=== PATIENT | female | born 1930 | race Caucasian/White ===

== ENCOUNTER 2020-02-11 16:51 | Inpatient (IN) | payer MEDICARE ==
[~2020-02-11] VITALS: Ht 154.9 cm; Wt 36.7 kg
[~2020-02-11 16:51] MED LIST: ASPIR 8181 MG PO; ASPIRIN325 PO; B-100 COMPLEX1 EAC1 PO; B-COMPLEX-VITA1 EACH PO; CARDIZEM CD180 MG PO; DILTIAZEM 24HR180 MG PO; DOXYCYCLINE 10100 M1 PO; EVISTA PO; FLOVENT DISKUS50 MCG IH; FOSAMAX 70 MG T70 M1 PO; IRON325; LEVAQUIN 250 M250 MG PO; LO-DOSE ASPIRIN81 M1 PO; LORATIDINE 10 M10 M1 PO; MECLIZINE HCL12.5 MG PO; MULTI VITAMIN1 EACH PO; NAPROSYN500 MG PO; PREDNISONE 10 M10 MG PO; RESTASIS1 EACH OP; ZANTAC 150MG T150 MG PO
[2020-02-11 17:08] VITALS: BP 138/73
[2020-02-11] MEDS ORDERED: ASA81BEC PO (17:14)
[2020-02-11] MEDS ORDERED: SYSTANE 0.3-0.1 EACH (17:14)
[2020-02-11] MEDS ORDERED: TRIAMTERENE/HCT1 CA1 PO (17:14)
[2020-02-11 17:48] LABS: ABSOLUTE LYMPHOCYTES 0.6 thou/uL (0.8-5.3); ABSOLUTE MONOCYTES 0.3 thou/uL (0.0-1.2); ABSOLUTE NEUTROPHILS 4.3 thou/uL (1.6-8.1); BASOPHILS 0.7 %; EOSINOPHILS 0.4 %; HEMATOCRIT 28.9 % (37.0-47.0); HEMOGLOBIN 9.6 gm/dL (12.0-15.0); LYMPHOCYTES 11.8 %; MCH 31.4 pg (26.0-34.0); MCHC 33.1 g/dL (28.0-37.0); MCV 95.1 fL (80.0-100.0); MONOCYTES 5.2 %; MPV 7.4 fl. (7.2-11.1); NUCLEATED RBCS 0 /100WBC; PLATELET COUNT* 250 thou/uL (150-400); POLYS 81.9 %; RBC 3.04 mil/uL (4.20-5.00); RDW-CV 16.1 % (10.5-14.5); WBC 5.2 thou/uL (4.0-11.0)
[2020-02-11 17:55] LABS: CALCIUM 7.7 mg/dL (8.5-10.1); CREATININE 1.1 mg/dL (0.6-1.3); POTASSIUM 3.3 mmol/L (3.5-5.1)
[2020-02-11 18:06] LABS: ALBUMIN 2.4 g/dL (3.4-5.0); TOTAL BILIRUBIN 0.2 mg/dL (<0.1-1.0); TOTAL PROTEIN 5.7 g/dL (6.4-8.2)
[2020-02-11 19:54] LABS: URINE BILIRUBIN NEGATIVE (Negative); URINE BLOOD TRACE (Negative); URINE CLARITY TURBID; URINE COLOR YELLOW; URINE GLUCOSE-RANDOM NEGATIVE (Negative); URINE KETONES NEGATIVE (Negative); URINE LEUKOCYTES-REFLEX 1+ (Negative); URINE PROTEIN TRACE (Negative); URINE UROBILINOGEN 0.2 E.U./dl (0.2-1.0)
[2020-02-11 19:56] LABS: URINE NITRITE-REFLEX POSITIVE (Negative)
[2020-02-11 20:07] LABS: HYALINE CASTS 0-3 Few /LPF (None Seen); MUCUS None Seen strn/LPF (None Seen); SQUAMOUS >10 Many /LPF (0-3)
[2020-02-11 20:08] LABS: BACTERIA-REFLEX >30 Many /HPF (None Seen); URINE RBC 0-2 Rare /HPF (0-2); URINE WBC-REFLEX 6-15 Few /HPF (0-5)
[2020-02-11 20:09] LABS: CRYSTALS None Seen /LPF (None Seen)
[2020-02-11 22:15] VITALS: BP 140/66
[2020-02-11 23:57] VITALS: BP 169/84
[2020-02-12 04:29] VITALS: BP 160/76
--- NOTE | 2020-02-12 04:31 | NUR ---
ASSUMED CARE OF PT 02/11/20 AT APPROX 2220. PT A&OX4, ON ROOM AIR, VSS. SR WITH PAC'S ON MONITOR. WOUND CONSULT ORDERED FOR MULTI WEEPING WOUNDS/BLISTERS ON BLE. IV FLUIDS INFUSING ORDERED. PT HAD NO COMPLAINTS THIS SHIFT. ASSESSMENTS AND HOURLY ROUNDINGS COMPLETED. WILL CONTINUE TO MONITOR.
[2020-02-12 08:00] VITALS: BP 122/62
[2020-02-12 11:30] VITALS: BP 128/67
--- NOTE | 2020-02-12 12:49 | EKG ---
[place] [address] ELECTROCARDIOGRAM REPORT Name: LISA PALMA Room: [address] IN .R.#: [id number] Admission: 02/11/20 Attend Phys: Kelly Anderson Discharge: Date of : [birth year] Date of Service: 02/11/20 1738 Report #: [id number] THIS REPORT FOR: //name// [facility] ED Test Date: 2020-02-11 Test Time: 17:38:23 Pat Name: LISA PALMA Department: Room: [facility] Gender: F Mind Reader: : 1930 Requested By: Maritza Caldwell Order Number: [id number] MD: Duke Reza Measurements Intervals Ullin Rate: 72 P: 79 FL: 113 QRS: 73 QRSD: 71 T: 11 QT: 387 QTc: 424 Interpretive Statements Sinus rhythm Supraventricular bigeminy Borderline short FL interval Nonspecific T abnormalities, lateral leads Compared to ECG 03/18/2017 16:15:16 T-wave abnormality now present Sinus tachycardia no longer present ST (T wave) deviation no longer present Electronically Signed On 02-12-2020 12:48:00 CDT by Duke Reza [email or web address] <ELECTRONICALLY SIGNED> By: Duke Reza MD, [facility] 02/12/20 1248 1738 1738 Duke Reza MD, [facility] /EPI
--- NOTE | 2020-02-12 15:28 | NUR ---
WOUND NURSE: PATIENT SEEN TO ADDRESS BLE WOUNDS AFTER SEROUS STRIKE THROUGH ON BANDAGES THAT WERE CHANGED EARLIER TODAY. RLE: PROXIMAL LATERAL WOUND PRESENTS INTACT BULLA MEASURING 3.0 X 3.5 CM. APPEARS SEROUS FLUID FILLED. SLIGHTLY DISTAL TO THIS WOUND AND SUMA LATERAL MEASURES 1.0 X 1.5 CM X 0.1 CM AND IS SMALL SKIN TEAR WITH LOOSE FLAP OF SKIN AND DRAINING LARGE AMOUNT OF SEROUS DRAINAGE. THERE IS A 6.0 X 4.0 X 0.1 CM RUPTURED BULLA ON THE LEFT LOWER LEG DRAINING LARGE AMOUNTS OF SEROUS FLUID. THERE IS 2 PLUS PITTING EDEMA IN BILATERAL LEGS. THERE IS SIGNIFICANT ECCHYMOSIS ON BOTH LEGS AND FEET WHICH ARE COLD TO TOUCH. CAPILLARY REFILL WAS 5 SECONDS ON THE RIGHT AND 3 SECONDS ON THE LEFT. ABLE TO DOPPLER MONOPHASIC DP PULSES BILATERALY. CLEANSED BLE WITH SOAP AND WATER, RINSED, THEN PATTED DRY. APPLIED LOTION TO INTACT SKIN TOES TO KNEE. APPLIED OPTIFOAM GENTLE AG TO WOUNDS UNDER ABD'S, THEN WRAPPED WITH KERLEX ROLL GAUZE AND SECURED WITH TAPE. HEELS WERE WHITE AND POOR CAP REFILL, SO HEELS OFF MATTRESS USING PILLOWS. PATIENT WITH < ALBUMIN AND PREALBUMIN AND RECEIVING SUPPLEMENTS PER HER NURSE.
[2020-02-12 15:47] VITALS: BP 153/78
--- NOTE | 2020-02-12 16:00 | NUR ---
ATTEMPTED TO CONTACT PT BY PHONE X2, SHE ASKED THAT CM CALL BACK, ATTEMPTED AND PT DIDN'T ANSWER. WILL TRY AGAIN LATER
--- NOTE | 2020-02-12 19:27 | NUR ---
RECEIVED REPORT FROM FLOR RN. ASSUMED CARE OF PT AROUND 0730. PT A&O X4. ASPHALT SURFACE HEATER OPERATOR IN PLACE TRACING SR WITH PAC'S TO SA. AM ASSESSMENT AND VITALS COMPLETED CHARTED. MEDS PER EMAR. POTASSIUM REPLACED. REDRAW ORDERED. PT DENIED PAIN OR DISCOMFORT THIS SHIFT. VASCULAR ASSESSED AND WRAPPED PT'S LEGS THIS AM, AND THEN LATER TODAY PT WAS SEEN BY WOUND CARE NURSE WHO REDRESSED BLE'S DUE TO DRESSING SATURATION. PT UP WITH SBA TO BATHROOM, VOIDING WELL. PT TOLERATING DIET AND DRINKING ENSURE SHAKES. HEELS OFF BED ON PILLOWS. PT CURRENTLY RESTING IN BED. CALL LIGHT IS WITHIN REACH. HOURLY ROUNDING PERFORMED. FALL PRECAUTIONS IN PLACE.
[2020-02-12 20:00] VITALS: BP 118/58
[2020-02-13] VITALS: BP 131/71
[2020-02-13 04:00] VITALS: BP 164/86
[2020-02-13 04:05] LABS: CALCIUM 7.6 mg/dL (8.5-10.1); CREATININE 0.9 mg/dL (0.6-1.3); MAGNESIUM 1.8 mg/dL (1.8-2.4); POTASSIUM 4.5 mmol/L (3.5-5.1)
--- NOTE | 2020-02-13 07:21 | NUR ---
NEW SKIN TEAR ON RIGHT WRIST, PICTURE TAKEN AND DOCUMENTED. SEE MAR. SEE CHARTING. VSS. FALL PRECAUTIONS IN PLACE. HOURLY ROUNDING FOR SAFETY.
[2020-02-13 08:10] VITALS: BP 125/91
[2020-02-13] MEDS ORDERED: B12INJ SUBQ (09:24)
[2020-02-13] MEDS ORDERED: SYNTHROID50 MCG PO (09:24)
[2020-02-13] MEDS ORDERED: THERA M PLUS T1 EAC2 PO (09:24)
[2020-02-13] MEDS ORDERED: CEFUROXIME250 MG PO (09:24)
[2020-02-13 10:34] VITALS: BP 156/72
[2020-02-13 11:24] VITALS: BP 156/72
[2020-02-13 12:18] VITALS: BP 156/72
--- NOTE | 2020-02-13 12:19 | NUR ---
ESTHELA called pt to complete initial assessment and discuss safe dc planning for today. Pt lives at home alone and has support in a close friend whom she still refers to as "like an adopted" dtr. Pt has 2 RWs she says she doesn't use but has if needed. ESTHELA explained doctor's recommendation for HH for wound care and nutritional assistance at home and pt agreeable to this and did not have preference but choice for [facility] and ESTHELA arranged, faxed referral and orders/dc summary to [facility] intake who accepted referral. Pt has a ride home she said she would call when ready to dc.
--- NOTE | 2020-02-13 15:04 | NUR ---
RECEIVED REPORT FROM WILL RN. ASSUMED CARE OF PT AROUND 0730. PT A&O X4. AM ASSESSMENT AND VITALS COMPLETED CHARTED. BOIL OFF WORKER IN PLACE TRACING SA. MEDS PER EMAR. PT DENIES PAIN OR DISCOMFORT. DRESSINGS TO BLE'S CHANGED, DC PICTURES TAKEN. DISCHARGE ORDERS RECEIVED. DISCHARGE COMPLETED DOCUMENTED. DISCHARGE SUMMARY, CARE NOTES GONE OVER WITH PT, PT COMMUNICATES UNDERSTANDING. PT AWARE TO RESIDENTIAL BUILDING INSPECTOR PRESCRIPTIONS FROM PHARMACY. IV AND CARDIAC MONIOR REMOVED. ALL BELONGINGS GATHERED AND SENT OUT WITH PT. PT LEFT UNIT IN WC WITH NURSING STAFF. PT LEFT HOSPITAL IN CAR WITH FRIEND.
== END 2020-02-13 14:53 | disposition home health service (06) | DRG 299 ==
LOC: M.ERS 16:51 → M.TBA-ER 20:53 → M.2W 20:53
PROVIDERS: Internal Medicine; Physician Assistant; ADMIT Internal Medicine
DX: I70.202 Unspecified atherosclerosis of native arteries of extremities, left leg (principal); E43 Unspecified severe protein-calorie malnutrition; Z68.1 Body mass index [BMI] 19.9 or less, adult; N30.91 Cystitis, unspecified with hematuria; J44.9 Chronic obstructive pulmonary disease, unspecified; S81.802A Unspecified open wound, left lower leg, initial encounter; S81.801A Unspecified open wound, right lower leg, initial encounter; X58.XXXA Exposure to other specified factors, initial encounter; E03.9 Hypothyroidism, unspecified; E87.6 Hypokalemia; I25.10 Atherosclerotic heart disease of native coronary artery without angina pectoris; M81.0 Age-related osteoporosis without current pathological fracture; I89.0 Lymphedema, not elsewhere classified; R62.7 Adult failure to thrive; K21.9 Gastro-esophageal reflux disease without esophagitis; I10 Essential (primary) hypertension; Y99.8 Other external cause status; I87.8 Other specified disorders of veins; M19.90 Unspecified osteoarthritis, unspecified site; Z96.1 Presence of intraocular lens; Z98.42 Cataract extraction status, left eye; Z98.41 Cataract extraction status, right eye; Z85.89 Personal history of malignant neoplasm of other organs and systems; Z79.82 Long term (current) use of aspirin; Z79.899 Other long term (current) drug therapy; Z88.8 Allergy status to other drugs, medicaments and biological substances; Z87.891 Personal history of nicotine dependence; Y93.89 Activity, other specified; Y92.89 Other specified places as the place of occurrence of the external cause

== ENCOUNTER 2020-04-01 10:40 | Inpatient (IN) | payer MEDICARE ==
[~2020-04-01] VITALS: Ht 154.9 cm; Wt 32.2 kg
[2020-04-01 10:40] VITALS: BP 158/72
[~2020-04-01 10:40] MED LIST changes: +ASA81BEC PO; +B12INJ SUBQ; +CEFUROXIME250 MG PO; +SYNTHROID50 MCG PO; +SYSTANE 0.3-0.1 EACH; +THERA M PLUS T1 EAC2 PO; +TRIAMTERENE/HCT1 CA1 PO
[2020-04-01 11:12] LABS: ABSOLUTE LYMPHOCYTES 0.6 thou/uL (0.8-5.3); ABSOLUTE MONOCYTES 0.3 thou/uL (0.0-1.2); ABSOLUTE NEUTROPHILS 4.8 thou/uL (1.6-8.1); BASOPHILS 0.6 %; HEMATOCRIT 23.8 % (37.0-47.0); HEMOGLOBIN 7.6 gm/dL (12.0-15.0); LYMPHOCYTES 10.7 %; MCH 29.9 pg (26.0-34.0); MCHC 31.9 g/dL (28.0-37.0); MCV 93.5 fL (80.0-100.0); MONOCYTES 5.3 %; NUCLEATED RBCS 0 /100WBC; PLATELET COUNT* 258 thou/uL (150-400); POLYS 83.4 %; RBC 2.55 mil/uL (4.20-5.00); RDW-CV 16.7 % (10.5-14.5); WBC 5.8 thou/uL (4.0-11.0)
[2020-04-01 11:19] LABS: CALCIUM 8.3 mg/dL (8.5-10.1); POTASSIUM 4.1 mmol/L (3.5-5.1)
[2020-04-01 11:29] LABS: ALBUMIN 2.7 g/dL (3.4-5.0); TOTAL BILIRUBIN 0.4 mg/dL (<0.1-1.0)
[2020-04-01 14:40] VITALS: BP 134/64
[2020-04-01 15:30] VITALS: BP 143/63
--- NOTE | 2020-04-01 18:20 | NUR ---
RECEIVED REPORT FROM JL SCHWARTZ. PATIENT A&OX4. PATIENT PRESENTED IN THE ED AFTER FALLING IN THE MIDDLE OF THE NIGHT FRACTURING HER LEFT SUPERIOR AND INFERIOR PUBIC. VSS. LSCTA. PATIENT ON 2LO2. PATIENT HAS A 20G IV IN L AC, SALINE LOCKED AND PATENT. PART OF THE DRESSING HAS CAUSED A SLIGHT SKIN TEAR. LEAVING RAINE UNTIL FURTHER ORDERS. PATIENT HAS BILATERAL CALF SCDS IN PLACE. PATIENT HAS BRUISING ON ARMS AND LEGS, BUT SKIN IS INTACT. BONY PROMINANCE ON COCCYX IS RED. APPLIED BARRIER CREAM AND REPOSITIONING. Q2 TURN. ORTHO TO BE CONSULTED PER ORDERS. BED IN LOWEST LOCKED POSITION AND CALL LIGHT IN REACH. PATIENT ON BEDREST.
[2020-04-01 20:40] VITALS: BP 118/53
--- NOTE | 2020-04-02 05:32 | NUR ---
PATIENT ALERT AND ORIENTED. NPO SINCE MIDNIGHT WITH THE EXCEPTION OF ONE SIP OF WATER FOR HYDROCODONE AT 0300. PUREWICK IN PLACE, BEDREST ORDERS. 2L O2 ON ALL NIGHT. PATIENT DID NOT WANT TO BE TURNED DUE TO DISCOMFORT. NON WB TO LEFT LEG. LEFT HIP AND SHOULDER PAIN. WILL CONTINUE TO MONITOR.
[2020-04-02 07:25] VITALS: BP 127/60
[2020-04-02 16:00] VITALS: BP 138/69
--- NOTE | 2020-04-02 17:11 | NUR ---
SW called pt to complete initial assessment, introduce self, and SW role. Pt lives at home alone. Pt is active with [facility]. Pt has cane if needed. SW to continue to follow to assist with safe dc planning.
--- NOTE | 2020-04-02 17:40 | NUR ---
PT REMAINED ALERT AND ORIENTED. PT C/O PAIN, MEDS GIVEN ORDERED. PT UP WITH THERAPY. FALL RISK PRECAUTIONS IN PLACE. HOURLY ROUNDING COMPLETED. WILL CONTINUE TO MONITOR.
[2020-04-02 19:45] VITALS: BP 131/54
--- NOTE | 2020-04-03 04:12 | NUR ---
ASSUMED CARE OF PT 04/02/20 AT APPROX 1930. PT A&OX4, O2 2L NC, VSS, PT UP WITH ASSIST TO BSC. NO COMPLAINTS OF PAIN THIS SHIFT. ASSESSMENTS AND HOURLY ROUNDINGS COMPLETE. WILL CONTINUE TO MONITOR.
[2020-04-03 05:50] LABS: HEMATOCRIT 22.2 % (37.0-47.0); MCH 29.4 pg (26.0-34.0); MCHC 31.1 g/dL (28.0-37.0); MCV 94.8 fL (80.0-100.0); RBC 2.35 mil/uL (4.20-5.00); RDW-CV 16.8 % (10.5-14.5); WBC 6.2 thou/uL (4.0-11.0)
[2020-04-03 06:28] LABS: HEMOGLOBIN 6.9 gm/dL (12.0-15.0)
[2020-04-03 07:59] VITALS: BP 147/67
[2020-04-03 09:36] VITALS: BP 114/53; BP 124/55; BP 133/66; BP 136/60
[2020-04-03 15:29] LABS: HEMATOCRIT 29.2 % (37.0-47.0)
[2020-04-03 15:31] LABS: HEMOGLOBIN 9.4 gm/dL (12.0-15.0)
[2020-04-03 16:10] VITALS: BP 116/57
--- NOTE | 2020-04-03 16:53 | NUR ---
PT A&Ox4. VITALS STABLE. 1 UNIT OF BLOOD GIVEN, HGB 6.9 TO 9.4. UP WITH 1-2 USING GAIT BELT AND WALKER. WAFFLE CUSION USED FOR BOTTOM. NEW IV PLACED RIGHT FA. ON 2-3L OX. FALL PRECAUTIONS IN PLACE. CALL LIGHT WITHIN REACH WILL CONTINUE TO MONITOR.
[2020-04-03 19:23] VITALS: BP 133/66
--- NOTE | 2020-04-04 04:21 | NUR ---
ASSUMED CARE OF PT 04/03/20 AT APPROX 1930. PT A&OX4, ON 3L NC, VSS, PURE WICK IN PLACE. NO C/O PAIN THIS SHIFT. ASSESSMENTS AND HOURLY ROUNDINGS COMPLETE, WILL CONTINUE TO MONITOR.
[2020-04-04 04:45] LABS: HEMOGLOBIN 9.8 gm/dL (12.0-15.0); MCH 28.3 pg (26.0-34.0); MCHC 31.7 g/dL (28.0-37.0); MPV 7.4 fl. (7.2-11.1); RBC 3.48 mil/uL (4.20-5.00); RDW-CV 20.6 % (10.5-14.5)
[2020-04-04 05:04] LABS: MCV 89.3 fL (80.0-100.0)
[2020-04-04 08:33] VITALS: BP 109/62
[2020-04-04 16:22] VITALS: BP 137/62
--- NOTE | 2020-04-04 17:31 | NUR ---
PT A&Ox4. VITALS STABLE. PT STABLE. UP WITH 1, WEAK. TOLERATING MEALS. IV PATENT. FALL PRECAUTIONS IN PLACE. CALL LIGHT WITHIN REACH. WILL CONTINUE TO MONITOR.
[2020-04-04 20:10] VITALS: BP 116/61
--- NOTE | 2020-04-05 04:20 | NUR ---
ASSUMED CARE OF PT 04/04/20 AT APPROX 1930. PT A&OX4, ON 3L NC, VSS. PAIN MED REQUESTED AND GIVEN ORDERED. PT SLEEPING WELL THIS SHIFT. WILL CONTINUE TO MONITOR.
[2020-04-05 07:30] VITALS: BP 133/61
[2020-04-05 16:30] VITALS: BP 129/59
--- NOTE | 2020-04-05 17:01 | NUR ---
PT REMAINED ALERT AND ORIENTED. PT RESTING IN BED. Q2 TURNS COMPLETED. PT WORKED WITH OT. PT HAS NOT HAD BM, PATIENT REQUESTED SUPPOSITORY TO BE AFTER DINNER. FALL RISK PRECAUTIONS IN PLACE. HOURLY ROUNDING COMPLETED. WILL CONTINUE TO MONITOR.
[2020-04-05 19:30] VITALS: BP 130/67
--- NOTE | 2020-04-06 06:35 | NUR ---
PT SLEPT WELL THIS SHIFT. ALERT AND ORIENTED. FORGETFUL. BM NOTED THIS SHIFT. Q2 TURN. PAIN MEDS GIVEN X1 THIS SHIFT. PT FRAIL WITH SEVERAL SKIN TEARS AND BRUISES. FALL PRECAUTION IN PLACE. CALL LIGHT WITHIN REACH. PT CALL APPROPRIATELY. WILL CONTINUE TO MONITOR.
[2020-04-06 09:18] VITALS: BP 142/55
--- NOTE | 2020-04-06 09:32 | CON ---
[address] [address] CONSULTATION Name: LISA PALMA Room: [address] IN M.R.#: [id number] Admission: 04/01/20 Attend Phys: Tim Mcdonald MD Discharge: Date of : [birth year] Report #: [id number] THIS REPORT FOR: //name// cc: Mary Jane Hagen Angela Jo RNP ~ THIS REPORT FOR: //name// CC: Mary Jane Lorenzo DO Primary Care Physician REASON FOR CONSULTATION: History of lymphoma and also cytopenia. 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 She reports getting possible radiation therapy, but she does not recall, does not recall if there were mentions of Dr. Ferguson, who is part at . Then, I also note, she has a piece ____ that has Dr. Mehdi Campa's name written down with Ritusonyn, but I am not sure for what tumor this was given. She reports that these are some records from her [employer] [place]. It has been quite some time since she saw Dr. Campa. I also see DrGeraldo ____ mentioned here and she also now works with Dr. Jernigan. In the past, she worked with ____. The patient at best can denies any ill feeling except for fatigue and I guess she fell down, the charts would suggestion may have lost 10 pounds since that admission about a month ago. I do note that about on last month's admission, she had a CT abdomen and pelvis that did not reveal any adenopathy. She has also had several chest x-rays. None of them have raised a question of masses or adenopathy. Her lab here was notable for iron that was low at 11, percent saturation at 4%, ferritin was 73. B12 and folate were normal. Liver functions were normal. Creatinine 1.0, MCV 93.3, platelets were normal. White count and differential were also fairly normal. PAST MEDICAL HISTORY: The patient's past history appears to be notable for the history of maybe lymphoma. Also, parotid tumor, unclear what that was, also a number of skin cancers. Also, possible peripheral arterial disease. Also, history of COPD, also history of multiple open wounds in the lower extremities, and also recent fracture superior pubic ramus after a fall at home, also hypothyroidism. PAST SURGICAL HISTORY: Appears to include cataracts, tubal ligation, radiation for vocal cord tumor, and stye removed from eye, she thinks this might be a lymphoma, so it is not clear. Carotid endarterectomy, though [place] [address] CONSULTATION Name: LISA PALMA Room: [address] IN .R.#: [id number] Admission: 04/01/20 Attend Phys: Tim Mcdonald MD Discharge: Date of : [birth year] Report #: [id number] Also, ____ she calls a parotid tumor, not sure if that is correct, possible CABG. Much of that history is of suspect nature. Mostly this is because the patient does not quite seem to know what some of these surgeries were or when they were done. We will try to get records from [facility]. SOCIAL HISTORY: The patient used to work as a clerical in the office. Nonsmoker, no alcohol. PHYSICAL EXAMINATION: GENERAL: The patient appears her stated age. VITAL SIGNS: Height is 5 feet 1 inch, weight currently is 71 pounds. Note that back in February, it was 85 pounds. When she was discharged, it was 81 pounds. Blood pressure is 109/62 in the left arm, respirations 12, O2 sat 100%, pulse 90, and temperature 98.3. LYMPHATICS: No enlarged lymph nodes in the supraclavicular, cervical, axillary, or inguinal region. HEENT: There are no masses in her lacrimal gland or periorbital regions. Oropharynx appears mostly normal and clear without masses. ABDOMEN: Scaphoid without masses. MUSCULOSKELETAL: She is quite bony from being skinny. EXTREMITIES: Without clubbing or cyanosis. Note, she does have several wounds with bandages over them on her legs. LABORATORY DATA: Done this admit notable for BUN of 27, creatinine 1, and glucose 227. Transaminases are normal. Alkaline phosphatase normal. Total bilirubin normal. TSH slightly elevated at 6.49. Iron is 11, percent saturation is 4%, TIBC 304. Ferritin 73. Folate 27.4, vitamin B12 is 914, 25-hydroxy vitamin D pending. INR on admission, 1. Today's white count 7.0, hemoglobin 9.8 after transfusion. Note that back in February, hemoglobin was 9.6. On 04/01 admit 7.6, the next day 6.9. Transfused 1 unit 9.4, today 9.8. MCV 89.3, on admit it was 95.1, platelets 250 on admit. Differential shows no unusual changes. MEDICATIONS: At this time in the hospital currently include Zofran, iron sucrose 300 mg, planned for 4 bags, and also tramadol p.r.n. ASSESSMENT AND PLAN: 1. History of lymphoma, per chart per patient, though I am unclear whether this was the left neck, someone said this is parotidectomy or her right lacrimal gland. We will try to get records from [facility]. We will also check the [facility] system, but I believe I checked last night and I did not see any, but we will check again. 2. Anemia, appears to be iron deficient. I would agree because a low saturation and low iron, this is most likely the cause. Undetermined etiology. Could consider colonoscopy and EGD, though this frail patient may not tolerate those well. We will also need to follow serial counts and see [place] [address] CONSULTATION Name: LISA PALMA Room: [address] IN [facility]#: [id number] Admission: 04/01/20 Attend Phys: Tim Mcdonald MD Discharge: Date of : [birth year] Report #: [id number] the patient. If not, may need to consider bone marrow biopsy. 3. Weight loss. Given that CAT scan of the abdomen and pelvis and chest did not reveal lymphadenopathy, I doubt this would be the cause. I do not see Hemoccult test of blood of stool, which could be considered. 4. Hypothyroid. Replaced. 5. Hypertension. Meds as needed. 6. Wounds on legs. We will defer to others evaluation. We will follow with you. <ELECTRONICALLY SIGNED> By: Binh Shelton MD 04/06/20 0932 1211 [id number] Shelton MD /nt
--- NOTE | 2020-04-06 13:36 | NUR ---
Pending possible inpt rehab stay prior to pt dc home. SW/CM to continue to follow to assist with safe dc planning.
[2020-04-06 16:00] VITALS: BP 136/48
--- NOTE | 2020-04-06 18:15 | NUR ---
SEE MAR. PATIENT RESTING AT THIS TIME W/ EYES CLOSED, RESPS EVEN AND UNLABORED, OPEN MOUTH BREATHING. O2/2L/NC. REPOSITIONED TOLERATED. CALL LIGHT IN REACH. HOB UP TO PATIENT COMFORT. HRLY ROUNDS DONE. ~JuventinoRN
[2020-04-06 19:32] VITALS: BP 110/50
[2020-04-07 01:50] LABS: URINE BILIRUBIN NEGATIVE (Negative); URINE BLOOD NEGATIVE (Negative); URINE CLARITY CLEAR; URINE COLOR YELLOW; URINE GLUCOSE-RANDOM NEGATIVE (Negative); URINE KETONES NEGATIVE (Negative); URINE LEUKOCYTES-REFLEX NEGATIVE (Negative); URINE NITRITE-REFLEX NEGATIVE (Negative); URINE PROTEIN TRACE (Negative); URINE UROBILINOGEN 0.2 E.U./dl (0.2-1.0)
--- NOTE | 2020-04-07 04:04 | NUR ---
ASSUMED CARE OF PT 04/06/20 AT APPROX 1915. PT A&OX4, ON 1L NC, VSS, PT TURNED Q2H. AT MIDNIGHT, PT NOT VOIDING 6HR, BLADDER SCANED 526ML NOTED, GOT PT UP TO BSC, PT VOIDED, POST VOID BLADDER SCAN 321ML RESIDUAL. YOU CALL MESSAGE SENT TO PHYSICIAN AT 0029, DR. BARBOSA CALLED AT 0103, ORDER GIVEN TO INSERT URINARY CATHETER, CATHER INSERTED ORDERED. PAIN MEDS REQUESTED AND GIVEN ORDERED. ASSESSMENTS AND HOURLY ROUNDINGS COMPLETE, WILL CONTINUE TO MONITOR.
[2020-04-07 07:30] VITALS: BP 132/64
--- NOTE | 2020-04-07 08:49 | NUR ---
ASSESSED PT AFTER BREAKFAST, O2 SATS LOW 80'S, RESPIRATORY AND PHYSICIAN NOTIFIED. ORDERS RECEIVED. OXYGEN INCREASED. PT ORIENTATION OFF, PT FORGETFUL AND THOUGHT MEDS WERE ON TABLE WHEN SHE ALREADY TOOK HER MORNING MEDS. PT BREATHING LABORED WITH WHEEZING PRESENT. PHYSICIAN NOTIFIED. WILL CONTINUE TO MONITOR.
--- NOTE | 2020-04-07 10:07 | NUR ---
INFORMED PATIENT OF PLAN OF CARE AND CALLED DPOA. BOTH OF THEM REQUESTED TO HAV DNR STATUS IN PLACE. NEW STATUS ORDERED AND PHYSICIAN NOTIFIED. PT LEAVING FOR CT SCAN NOW. ABG ORDERED AND COLLECTED. WILL CONTINUE TO MONITOR.
[2020-04-07 10:14] LABS: BE -1.4 mmol/L (-2 to +3)
[2020-04-07 10:17] LABS: PCO2 54.4 mmHg (35.0-45.0); PO2 53.2 mmHg (75.0-100.0); pH 7.291 (7.340-7.450)
[2020-04-07 11:08] LABS: HEMATOCRIT 28.9 % (37.0-47.0); HEMOGLOBIN 9.1 gm/dL (12.0-15.0); MCH 29.6 pg (26.0-34.0); MCHC 31.5 g/dL (28.0-37.0); MCV 93.9 fL (80.0-100.0); MPV 7.8 fl. (7.2-11.1); NUCLEATED RBCS 1 /100WBC; PLATELET COUNT* 194 thou/uL (150-400); RBC 3.07 mil/uL (4.20-5.00); RDW-CV 19.8 % (10.5-14.5); WBC 4.6 thou/uL (4.0-11.0)
[2020-04-07 11:18] LABS: CALCIUM 9.7 mg/dL (8.5-10.1); MAGNESIUM 1.9 mg/dL (1.8-2.4); POTASSIUM 4.4 mmol/L (3.5-5.1)
[2020-04-07 11:31] VITALS: BP 126/64
[2020-04-07 11:44] LABS: ABSOLUTE LYMPHOCYTES 0.3 thou/uL (0.8-5.3); ABSOLUTE NEUTROPHILS 4.3 thou/uL (1.6-8.1); HYPOCHROMASIA 1+; PLATELET ESTIMATE ADEQUATE
[2020-04-07 11:45] LABS: ANISOCYTOSIS 1+; OVALOCYTES 1+; POIKILOCYTOSIS 1+; POLYCHROMASIA Occasional
--- NOTE | 2020-04-07 12:20 | NUR ---
RECEIEVED REPORT FROM RELL RN IN [facility] OF EXPECTED TRANSFER AT 1038- NEW NOTED PNA WITH RESP DISTRESS- PT ARRIVED TO ROOM 213 VIA BED AT 1110- HAT AND CAP OPENER PLACED ORDERED, TRACING ST WITH PAC- VS 97.7 22 126/64 91 94% ON HF 10L NC- RESP HERE TO APPLU BIPAP INDICATED- PRIOR ASSESSMENT REVIEWED ADN AGREE- SKIN NOTED WITH GENERALIZED BRUING AND MULTIPLE SKIN TEARS NOTED TO UE WITH DRESSINGS IN PLACE AND LLE- CHEST CTA NOTED WITH RESULTS NOTED IN [facility]- PT NPO WITH SWALLOW EVAL AND VIDEO SWALLOW ORDERED- IV NOTED TO RIGHT FA INTACT, IVF ABT GIVEN PRESCRIBED- PT CURRENLTY RESTING COMFORTABLY IN BED WITH BIPAP IN PLACE AND EYES CLOSED- CALL LIGHT AND PERSONAL BELONGINGS WITH IN REACH- HOURLLY ROUNDS IN PLACE R/T SAFETY/NEEDS- ALL NEEDS MET AT THIS TIME-WCTM
[2020-04-07 15:58] VITALS: BP 102/54
[2020-04-07 20:00] VITALS: BP 75/40
--- NOTE | 2020-04-07 22:29 | NUR ---
SOON REPORT OVER PT PULLING OFF BIPAP SAYING I WANT TO . O2 SATS 71% PT PLACED ON 15 LITERS HIGH FLOW. PTS SISTER GEOVANY AND DPOA DAUGHTER SHAY NOTIFIED OF PTS CONDITION AND STATEMENT. ALL AGREE FOR COMFORT CARE. DR CHASE NOTIFIED. COMFORT CARE ORDERED. FAMILY INTO SEE PT. TELEMTRY ST 113 NOW SR 98% LAST O2 SPOT CHECK AT 2130 73% MORPHINE 2 MG GIVEN FOR PAIN IN COCCYX. RESTING QUIETLY.
--- NOTE | 2020-04-08 01:14 | NUR ---
PT AT 2253. NO HEART TONES, NO VS. FAMILY AT BS. PRONOUNCED BY TWO RNS. BELONGINGS SENT HOME WITH PTS DAUGHTER SHAY HERNANDEZ.
--- NOTE | 2020-04-09 09:12 | NUR ---
NOTIFIED [facility] THAT PT.HAD ON 04/07. SHE HAD BEEN ON THEIR SERVICE PRIOR TO COMING INTO HOSPITAL.
== END 2020-04-07 22:53 | DRG 542 ==
LOC: M.ERS 10:40 → M.3W 12:31 → M.TBA-ER 12:31 → M.3W 15:08 → M.ORTHSURG 04-06 12:07 → M.2W 04-07 11:12
PROVIDERS: Emergency Medicine; Family Medicine; ADMIT Internal Medicine
PROC: 30233N1 Transfusion of Nonautologous Red Blood Cells into Peripheral Vein, Percutaneous Approach (ICD-10-PCS; 2020-04-03)
PROC: 5A09357 Assistance with Respiratory Ventilation, Less than 24 Consecutive Hours, Continuous Positive Airway Pressure (ICD-10-PCS; principal; 2020-04-07)
DX: M80.052A Age-related osteoporosis with current pathological fracture, left femur, initial encounter for fracture (principal); J15.6 Pneumonia due to other Gram-negative bacteria; E43 Unspecified severe protein-calorie malnutrition; J96.01 Acute respiratory failure with hypoxia; Z68.1 Body mass index [BMI] 19.9 or less, adult; J44.0 Chronic obstructive pulmonary disease with (acute) lower respiratory infection; I25.10 Atherosclerotic heart disease of native coronary artery without angina pectoris; M19.90 Unspecified osteoarthritis, unspecified site; E03.9 Hypothyroidism, unspecified; K21.0 Gastro-esophageal reflux disease with esophagitis; I73.9 Peripheral vascular disease, unspecified; D50.9 Iron deficiency anemia, unspecified; Y95 Nosocomial condition; I10 Essential (primary) hypertension; Z66 Do not resuscitate; Z96.1 Presence of intraocular lens; R63.4 Abnormal weight loss; Z95.1 Presence of aortocoronary bypass graft; Z98.42 Cataract extraction status, left eye; Z98.41 Cataract extraction status, right eye; Z79.899 Other long term (current) drug therapy; Z88.8 Allergy status to other drugs, medicaments and biological substances; Z87.891 Personal history of nicotine dependence; Z85.828 Personal history of other malignant neoplasm of skin; Z92.3 Personal history of irradiation; Z79.82 Long term (current) use of aspirin; Z85.72 Personal history of non-Hodgkin lymphomas